=== PATIENT | female | born 2000 | race Caucasian/White ===

== ENCOUNTER 2022-04-05 20:04 | Inpatient (IN) | payer OTHER ==
[~2022-04-05] VITALS: Ht 170.2 cm; Wt 158.3 kg
[2022-04-05 20:37] LABS: HCT 35.7 % (37.0-47.0); HGB 12.5 g/dl (12.5-16.0); MCH 31.6 pg (25.0-31.0); MCV 90.2 fL (78.0-100.0); MPV 10.6 fL (6.0-9.5); RBC 3.96 M/uL (4.20-5.40); RDW 12.2 % (11.5-14.0); WBC 7.9 K/uL (4.0-10.5)
[2022-04-05 20:38] LABS: BILIRUBIN NEGATIVE (NEGATIVE); BLOOD NEGATIVE Ery/uL (NEGATIVE); CLARITY CLEAR (CLEAR); COLOR YELLOW (YELLOW); GLUCOSE (U) TRACE mg/dL (NORMAL); LEUKOCYTES NEGATIVE Leu/uL (NEGATIVE); NITRITE NEGATIVE (NEGATIVE); PROTEIN TRACE (LOW) mg/dL (NEGATIVE); SPECIFIC GRAVITY 1.025 (1.001-1.030); UROBILINOGEN 0.2 mg/dL (0.2-1.0)
[2022-04-05 20:50] LABS: BACTERIA TRACE; URINARY WBC RARE
[2022-04-08 06:12] LABS: HCT 33.6 % (37.0-47.0); HGB 11.4 g/dl (12.5-16.0); MCH 31.5 pg (25.0-31.0); MCHC 33.9 g/dL (32.0-36.0); MCV 92.8 fL (78.0-100.0); MPV 10.9 fL (6.0-9.5); RBC 3.62 M/uL (4.20-5.40); RDW 12.3 % (11.5-14.0); WBC 8.3 K/uL (4.0-10.5)
[2022-04-09] MEDS ORDERED: IBUPROFEN800 MG PO (08:37)
[2022-04-09] MEDS ORDERED: COLACE100 MG PO (08:38)
[2022-04-09] MEDS ORDERED: PRENATAL FORMU1 EACH PO (08:39)
== END 2022-04-09 11:15 | disposition home or self-care (01) | DRG 807 ==
LOC: FOB 20:04
PROVIDERS: Obstetrics & Gynecology; ADMIT Obstetrics & Gynecology
PROC: 10E0XZZ Delivery of Products of Conception, External Approach (ICD-10-PCS; principal; 2022-04-07)
PROC: 0KQM0ZZ Repair Perineum Muscle, Open Approach (ICD-10-PCS; 2022-04-07)
PROC: 3E0P7VZ Introduction of Hormone into Female Reproductive, Via Natural or Artificial Opening (ICD-10-PCS; 2022-04-07)
DX: O99.214 Obesity complicating childbirth (principal); Z37.0 Single live birth; O36.63X0 Maternal care for excessive fetal growth, third trimester, not applicable or unspecified; O69.81X0 Labor and delivery complicated by cord around neck, without compression, not applicable or unspecified; O70.1 Second degree perineal laceration during delivery; Z20.822 Contact with and (suspected) exposure to COVID-19; O99.824 Streptococcus B carrier state complicating childbirth; Z3A.39 39 weeks gestation of pregnancy
CPT/HCPCS: 36415; 81001; 86900; 86901; J0595; J1650; J2210; J2300; J2405; J2540; J2795; J7120; U0002